=== PATIENT | female | born 1945 | race Caucasian/White ===

== ENCOUNTER 2021-10-21 11:08 | Emergency (ER) | payer MEDICARE, OTHER ==
[~2021-10-21] VITALS: Ht 160 cm; Wt 68.5 kg
[2021-10-21] MEDS ORDERED: BUPROPION XL300 MG PO (11:29)
[2021-10-21] MEDS ORDERED: LEVOFLOXACIN500 MG PO (14:20)
[2021-10-21] MEDS ORDERED: BENZONATATE100 MG PO (14:20)
--- NOTE | 2021-10-22 17:27 | EKG ---
[facility] [address] [facility] [place] [address] Signed Sinus rhythm with sinus arrhythmia with short MT Otherwise normal ECG No previous ECGs available Confirmed by KENNETH HIGGINS MD ([id number]) on 10/22/2021 5:27:22 PM Electronically Signed By: KENNETH HIGGINS MD 10/22/21 1727 PATIENT NAME: GUTIERREZ LEAHY Electrocardiogram DATE OF : 43 PHYSICIAN: KENNETH HIGGINS MD REPORT #: [id number] REPORT IS CONFIDENTIAL AND NOT TO BE RELEASED WITHOUT AUTHORIZATION
== END 2021-10-21 14:37 | disposition home or self-care (01) ==
LOC: ED 11:08
DX: J18.9 Pneumonia, unspecified organism (principal); Z88.2 Allergy status to sulfonamides; Z79.899 Other long term (current) drug therapy; Z20.822 Contact with and (suspected) exposure to COVID-19
CPT/HCPCS: 36415; 71045; 80053; 81001; 83880; 85025; 85060; 93005; 93010; 94640; 99284-25; C9803; U0003

== ENCOUNTER 2021-10-24 11:50 | Emergency (ER) | payer MEDICARE, OTHER ==
[~2021-10-24] VITALS: Ht 160 cm; Wt 68.5 kg
[~2021-10-24 11:50] MED LIST: BENZONATATE100 MG PO; BUPROPION XL300 MG PO; LEVOFLOXACIN500 MG PO
--- OUTSIDE RECORDS SUMMARY | 2021-10-24 11:54 | XMS ---
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 [place] VISIT COUNT ([address] [facility] TOTAL 2 NOTE: Visits indicate total known visits. ED/UCC VISIT TRACKING (12 MO.) 10/24/2021 11:51 [facility] TYPE: Emergency COMPLAINT: - PNEUMONIA SYMPTOMS 10/21/2021 11:10 [facility] TYPE: Emergency COMPLAINT: - COUGH, CHEST/BACK PAIN DIAGNOSES: - Allergy status to sulfonamides - Pneumonia, unspecified organism - Other long-term (current) drug therapy - Cough, unspecified - Contact with and (suspected) exposure to COVID-19 INPATIENT VISIT TRACKING (12 MO.) No inpatient visits to display in this time frame [email or web address]
--- NOTE | 2021-10-25 14:23 | EKG ---
[facility] [address] [facility] [place] [address] Signed Sinus rhythm with short WI Cannot rule out Inferior infarct , age undetermined Abnormal ECG When compared with ECG of 21-OCT-2021 12:26, ST now depressed in Anterior leads Confirmed by KENNETH HIGGINS MD ([id number]) on 10/25/2021 2:23:24 PM Electronically Signed By: KENNETH HIGGINS MD 10/25/21 1423 PATIENT NAME: GUTIERREZ LEAHY Electrocardiogram DATE OF : 43 PHYSICIAN: KENNETH HIGGINS MD REPORT #: [id number] REPORT IS CONFIDENTIAL AND NOT TO BE RELEASED WITHOUT AUTHORIZATION
== END 2021-10-24 18:45 | disposition short-term general hospital (02) ==
LOC: ED 11:50
DX: J84.89 Other specified interstitial pulmonary diseases (principal); I26.99 Other pulmonary embolism without acute cor pulmonale; R09.02 Hypoxemia; Z88.2 Allergy status to sulfonamides; Z79.899 Other long term (current) drug therapy; Z20.822 Contact with and (suspected) exposure to COVID-19
CPT/HCPCS: 36415; 71045; 71260; 80053; 83605; 83880; 85025; 93005; 93010; 99285-25; C9803; J1650; Q9967; U0003